=== PATIENT | male | born 1960 | race Caucasian/White ===

== ENCOUNTER → 2017-01-15 | Outpatient (CLI) | payer OTHER | LOC: BMCIMAGING 12:59 | PROVIDERS: ATTEND Physician Assistant | DX: R93.6 Abnormal findings on diagnostic imaging of limbs (principal); Z96.652 Presence of left artificial knee joint ==

== ENCOUNTER → 2017-01-22 | Outpatient (CLI) | payer OTHER | LOC: FIMAGING 08:58 | PROVIDERS: ATTEND Physician Assistant | DX: R93.7 Abnormal findings on diagnostic imaging of other parts of musculoskeletal system (principal); Z96.652 Presence of left artificial knee joint | CPT/HCPCS: 78315; A9503 ==

== ENCOUNTER 2018-01-20 12:10 | Day surgery (SDC) | payer OTHER ==
[2018-01-20] MEDS ORDERED: MIDAZOLAM 2 MG/2 ML VIAL IVP ONE ×2 (12:15→14:28)
[2018-01-20] MEDS ORDERED: ATROPINE SULFATE 1 MG/10 ML SYR IVP ONE (12:15)
[2018-01-20] MEDS ORDERED: fentaNYL 100 MCG/2 ML INJ IVP ONE (12:15)
[2018-01-20] MEDS ORDERED: NS 500 ML IV ONE (12:15)
[2018-01-20] MEDS ORDERED: BENZOCAINE UNIT DOSE SPRAY HURRICAINE MM ONE (12:15)
[2018-01-20] MEDS ORDERED: APIXABAN 5 MG TAB ONE (12:25)
--- NOTE | 2018-01-20 12:35 | CPEKG ---
Heart Rate: 89 RR Interval: 674 QRSD Interval: 102 QT Interval: 380 QTC Interval: 463 QRS [place]: 25 T Wave [place]: -19 EKG Severity - ABNORMAL ECG - EKG Impression: ATRIAL FIBRILLATION-- New since September 23, 2016 EKG Impression: NONSPECIFIC T ABNORMALITIES, INFERIOR LEADS EKG Impression: Right ventricular conduction defect Electronically Signed By: Camden Reis 20-Jan-2018 15:23:00
[2018-01-20] MEDS ORDERED: APIXABAN 5 MG TAB PO ONE (12:45)
[2018-01-20 13:19] LABS: INR 1.1 (0.83-1.16); PROTIME(PATIENT) 14.4 SEC (12.0-15.0)
--- NOTE | 2018-01-20 13:25 | PDHPUP ---
History & Physical Update H&P update statement: This history and physical update is based on an assessment of the patient which was completed after admission or registration (within 24 hours), but prior to the surgery/procedure. H&P update: no change in patient's condition since H&P completed
[2018-01-20] MEDS ORDERED: PROPOFOL 200 MG/20 ML VIAL ONE (13:54)
--- NOTE | 2018-01-20 13:56 | PDANEPAE ---
ANE History of Present Illness a fib ANE Past Medical History - Cardiovascular History Hx Hypertension: Yes Hx Arrhythmias: Yes Hx Chest Pain: No Hx Coronary Artery / Peripheral Vascular Disease: No Hx CHF / Valvular Disease: No Hx Palpitations: No Cardiovascular History Comment: A fib, on Eliquis - Pulmonary History Hx COPD: No Hx Asthma/Reactive Airway Disease: No Hx Recent Upper Respiratory Infection: No Hx Sleep Apnea: Yes Pulmonary History Comment: ALFREDITO w/CPAP- irasema well - Neurologic History Hx Cerebrovascular Accident: No Hx Seizures: No Hx Dementia: No - Endocrine History Hx Diabetes: No Obesity: yes, mild - Renal History Hx Renal Disorders: No - Liver History Hx Hepatic Disorders: No - Neurological & Psychiatric Hx Hx Neurological and Psychiatric Disorders: No - Cancer History Hx Cancer: No - Congenital Disorder History Hx Congenital Disorders: No - GI History Hx Gastrointestinal Disorders: Yes Gastrointestinal History Comment: GERD - on Rx - Other Health History Other Health History: OA R knee - Chronic Pain History Chronic Pain: No - Surgical History Prior Surgeries: L total knee . Bilat knee scopes, L ACL , L ankle - ligament, inguinal hernia, appy '95, ear surgeries as a child, T and A, ANE Review of Systems Review of systems is: negative Review of Systems: - Exercise capacity Exercise capacity: >=4 METS ANE Patient History - Allergies Allergies/Adverse Reactions: hayfever Allergy (Uncoded 07/22/16 08:05) - Home Medications Home medications: home medication list seen and reviewed Home Medications: Apixaban [Eliquis] 5 mg PO BID 05/07/17 [Last Taken 01/20/18 12:45] Lisinopril [Zestril 20 mg (*)] 40 mg PO DAILY 05/07/17 [Last Taken 01/19/18 08: 00] Metoprolol Succinate Xr [Toprol Xl 25 mg (*)] 25 mg PO DAILY 05/07/17 [Last Taken 01/19/18 08:00] Omeprazole 20 mg PO DAILY 05/07/17 [Last Taken 01/19/18 08:00] Propafenone HCl [Rythmol 150mg (*)] 150 mg PO Q8H 05/07/17 [Last Taken 01/20/18 02:00] oxyCODONE IR [Oxycodone Ir (*)] 5 mg PO Q6H PRN 05/07/17 [Last Taken 01/17/18 22 :00] - Smoking Hx Smoking Status: Never smoked - Family Anes Hx Family Hx Anesthesia Complications: none ANE Labs/Vital Signs - Labs Result Diagrams: 01/20/18 12:40 - Vital Signs Height: 198 cm Weight: 127.3 kg ANE Physical Exam - Airway Neck exam: FROM Mallampati Score: Class 1 Mouth exam: normal dental/mouth exam - Pulmonary Pulmonary: no respiratory distress - Cardiovascular Cardiovascular: regular rate and rhythym - ASA Status ASA Status: III ANE Anesthesia Plan Anesthesia Plan: GA with mask
[2018-01-20] MEDS ORDERED: NALOXONE HCL 0.4 MG/ML INJ IVP PRN (14:14)
[2018-01-20] MEDS ORDERED: ACETAMINOPHEN 500 MG TAB PO PRN (14:14)
[2018-01-20] MEDS ORDERED: ONDANSETRON 4 MG/2 ML VIAL IVP PRN (14:14)
[2018-01-20] MEDS ORDERED: ALBUTEROL 3 ML DEYVIAL IH PRN (14:14)
--- NOTE | 2018-01-20 14:14 | POSTANESTH ---
Post Anesthetic Evaluation Cardiovascular Status: Normal, Stable Respiratory Status: Normal, Stable Level of Consciousness/Mental Status: Can Participate in Eval Pain Control: Adequate, Prn Tx Ordered Nausea/Vomiting Control: Adequate, Prn Tx Ordered Complications Possibly Related to Anesthesia: None Noted
--- NOTE | 2018-01-20 14:19 | CPEKG ---
Heart Rate: 64 RR Interval: 938 P-R Interval: 180 QRSD Interval: 100 QT Interval: 404 QTC Interval: 417 P [place]: 29 QRS [place]: -1 T Wave [place]: -14 EKG Severity - BORDERLINE ECG - EKG Impression: SINUS RHYTHM EKG Impression: PROBABLE LEFT ATRIAL ABNORMALITY EKG Impression: BORDERLINE T ABNORMALITIES, INFERIOR LEADS EKG Impression: Resolution of atrial fibrillation since January 20, 2018, 12:34 Electronically Signed By: Camden Reis 20-Jan-2018 15:21:47
--- NOTE | 2018-02-05 11:07 | CPIP ---
[f rep st] INVASIVE CARDIAC PROCEDURE The patient has atrial fibrillation. Patient has been on Eliquis and has not make missed any doses. He gave informed consent for a cardio version. He did not want any further evaluation or other studies done. He converted with 360 watt seconds fro m atrial fibrillation to normal sinus rhythm. Complications were none. He was up and about and doing very well. Followup has been arranged. /[id number]/MODL
== END 2018-01-20 15:14 | disposition home or self-care (01) ==
LOC: FCATH 12:10
PROVIDERS: ATTEND Internal Medicine
PROC: 5A2204Z Restoration of Cardiac Rhythm, Single (ICD-10-PCS; principal; 2018-01-20)
DX: I48.0 Paroxysmal atrial fibrillation (principal); Z79.01 Long term (current) use of anticoagulants
CPT/HCPCS: J0461; J2704

== ENCOUNTER 2018-09-17 09:13 | Inpatient (IN) | payer OTHER ==
--- NOTE | 2018-09-17 06:09 | PDIAF ---
- Diagnosis Diagnosis: right knee djd Code Status: Full Code - Medication Management Discharge Medications: electronically signed and located in the Home Medication List. - Orders Services needed: Home Care, Physical Therapy Home Care Face to Face: I certify that this patient was under my care and that I had the required binn-wz-ejtw encounter meeting the encounter requirements on the discharge day. My findings support the fact that the patient is homebound as defined in Home Care Face to Face Continued: CMS Chapter 7 Medicare Benefits Manual 30.1.1 , The condition of the patient is such that there exists a normal inability to leave home and consequently, leaving home would require a considerable and taxing effort. Diet Recommendation: no restrictions on diet Diet Texture: Regular Texture Diet Additional Instructions: TOTAL JOINT ARTHROPLASTY DISCHARGE INSTRUCTIONS 1. Your surgeon follows the [facility] protocol for reducing your risk of DVT (blood clots) following surgery. Medication will be ordered to prevent blood clots. A sudden increase in calf pain and/or swelling could indicate a blood clot in your leg. If this occurs, please call your surgeon or his/her assistant press operator. An ultrasound of the leg may be necessary to diagnose a blood clot. If you have conditions that make you a higher risk for blood clots, your surgeon may use more aggressive ways to prevent them. Notify your surgeon if you think you are a high risk for blood clots. 2. Wear your white surgical stockings (BALBINA hose) for 2 weeks. This decreases your swelling and may help prevent blood clots. It is ok to remove BALBINA hose at night time to give your legs a break. 3. Swelling and bruising in the surgical leg is common. If you feel that it is excessive, please notify your surgeon. 4. Elevate your surgical leg with the ankle above the hip several times every day. Please keep the leg straight when you elevate by putting pillows under your foot. Do not put pillows under your knee. This will make being able to fully straighten more difficult. This is uncomfortable, but try to do it as much as possible. 5. For total knee replacements use compressive wrap on your knee for 3-5 days after surgery, then you can discontinue it. 6. Use a walker or crutches for 1-2 weeks. Progress your weight-bearing as tolerated. You may start to use a cane when you feel stable and safe. 7. You will receive physical therapy instructions in the hospital. Continue those exercises at home. There are additional exercises in the total joint booklet you were given before surgery. Outpatient physical therapy will begin 7- 10 days after surgery. Please schedule this in advance. 8. Use ice on your knee at least 3-5 times every day for 30 minutes. This helps reduce pain and swelling. Also use it at night before falling asleep. 9. Leave your surgical dressing in place for 2 weeks. Your dressing is water resistant, but not waterproof. Cover it with Saran Wrap or Adfsl-a-Noot before showering. You may shower as soon as you feel safe entering a shower. If you notice bleeding from your incision 2 or 3 days after surgery, please notify your surgeon. 10. Due to narcotics, decreased activity and altered diet, most patients experience constipation after surgery. Use abte-hom-vyczmnx stool softeners while you are on narcotics. 11. You may drive a car when you are comfortable bearing weight, have good muscular control of your leg and are off narcotics. This usually occurs 2-4 weeks after surgery, depending on which leg was operated on. 12. If there are questions not addressed here, please refer the [facility] book given for more information. If you still have questions, please contact your surgeon s office. 13. If you have a life-threatening emergency, please call 911 and go to the emergency room immediately. For non-life threatening emergencies, please call your physicians office for advice before going to the emergency room. - Follow Up Care Current Providers and Referrals: Rigo Murray MD [Medical Doctor] - Garett Lau MD [Primary Care Provider] -
[~2018-09-17 09:13] MED LIST: ROPIVACAINE 0.2% 80 MG, EPINEPHrine 0.2 MG, KETOROLAC TROMETHAMINE 30 MG, morphINE 10 M... IU ONE; TRANEXAMIC ACID 1,000 MG in NS 100 ML IV ONE; TRANEXAMIC ACID 2,000 MG in NS 100 ML IV ONE; ceFAZolin 1 GM/5 ML SYR ONE
[2018-09-17] MEDS ORDERED: ceFAZolin 2 GM/DEXTROSE 100 ML IV ONE (09:39)
[2018-09-17] MEDS ORDERED: ACETAMINOPHEN 325 MG TAB PO ONE (09:39)
[2018-09-17] MEDS ORDERED: FAMOTIDINE 20 MG TAB PO ONE (09:39)
[2018-09-17] MEDS ORDERED: LR 1,000 ML IV ONE (09:40)
[2018-09-17] MEDS ORDERED: LIDOCAINE 1% 2 ML INJ ID PRN (09:40)
--- NOTE | 2018-09-17 10:10 | PDANEPAE ---
ANE Past Medical History - Cardiovascular History Hx Hypertension: Yes Hx Arrhythmias: Yes Hx Chest Pain: No Hx Coronary Artery / Peripheral Vascular Disease: No Hx CHF / Valvular Disease: No Hx Palpitations: No Cardiovascular History Comment: A fib, on Eliquis - Pulmonary History Hx COPD: No Hx Asthma/Reactive Airway Disease: No Hx Recent Upper Respiratory Infection: No Hx Sleep Apnea: No Sleep Apnea Screening Result - Last Documented: Positive Pulmonary History Comment: ALFREDITO w/CPAP- irasema well - Neurologic History Hx Cerebrovascular Accident: No Hx Seizures: No Hx Dementia: No - Endocrine History Hx Diabetes: No - Renal History Hx Renal Disorders: No - Liver History Hx Hepatic Disorders: No - Neurological & Psychiatric Hx Hx Neurological and Psychiatric Disorders: No - Cancer History Hx Cancer: No - Congenital Disorder History Hx Congenital Disorders: No - GI History Hx Gastrointestinal Disorders: Yes Gastrointestinal History Comment: GERD - on Rx - Other Health History Other Health History: OA R knee - Chronic Pain History Chronic Pain: No - Surgical History Prior Surgeries: L total knee . Bilat knee scopes, L ACL , L ankle - ligament, inguinal hernia, appy '95, ear surgeries as a child, T and A, ANE Review of Systems Review of Systems: - Exercise capacity METS (RN): 4 METS ANE Patient History - Allergies Allergies/Adverse Reactions: hayfever Allergy (Uncoded 07/22/16 08:05) - Home Medications Home Medications: Apixaban [Eliquis] 5 mg PO BID 05/07/17 [Last Taken 09/15/18] Lisinopril [Zestril 20 mg (*)] 40 mg PO DAILY 05/07/17 [Last Taken 09/16/18] Metoprolol Succinate Xr [Toprol Xl 25 mg (*)] 25 mg PO DAILY 05/07/17 [Last Taken 09/17/18] Omeprazole 20 mg PO DAILY 05/07/17 [Last Taken 09/17/18] Propafenone HCl [Rythmol 150mg (*)] 150 mg PO Q8H 05/07/17 [Last Taken 09/16/18] - NPO status NPO Since - Liquids (Date): 09/17/18 NPO Since - Liquids (Time): 07:00 NPO Since - Solids (Date): 09/16/18 NPO Since - Solids (Time): 21:30 - Smoking Hx Smoking Status: Never smoked - Family Anes Hx Family Hx Anesthesia Complications: none ANE Labs/Vital Signs - Vital Signs Blood Pressure: 150/115 Heart Rate: 59 Respiratory Rate: 22 O2 Sat (%): 94 Height: 198.12 cm Weight: 124.738 kg ANE Physical Exam - Airway Neck exam: decreased ROM, increased neck circumference, short neck Mallampati Score: Class 3 Mouth exam: normal dental/mouth exam - Pulmonary Pulmonary: no respiratory distress - Cardiovascular Cardiovascular: regular rate and rhythym - ASA Status ASA Status: III ANE Anesthesia Plan Anesthesia Plan: general endotracheal anesthesia
[2018-09-17] MEDS ORDERED: DEXAMETHASONE 4 MG/ML VIAL ONE ×2 (10:36→10:37)
[2018-09-17] MEDS ORDERED: PROPOFOL 200 MG/20 ML VIAL ONE (10:36)
[2018-09-17] MEDS ORDERED: ROCURONIUM 100 MG/10 ML VIAL ONE (10:36)
[2018-09-17] MEDS ORDERED: METOCLOPRAMIDE 10 MG/2 ML VIAL ONE (10:37)
[2018-09-17] MEDS ORDERED: KETOROLAC 30 MG/1 ML SDV ONE (10:37)
[2018-09-17] MEDS ORDERED: LIDOCAINE 2% 100 MG/5 ML SYR ONE (10:37)
[2018-09-17] MEDS ORDERED: CALCIUM CHLORIDE 1 GM/10 ML INJ ONE (10:56)
[2018-09-17] MEDS ORDERED: THROMBIN (BOVINE) 5,000 UNIT VIAL TP ONE (10:56)
[2018-09-17] MEDS ORDERED: SUGAMMADEX SODIUM 200 MG/2 ML VIAL IVP ONE (12:39)
[2018-09-17] MEDS ORDERED: ONDANSETRON 4 MG/2 ML VIAL IVP PRN ×2 (13:01→13:20)
[2018-09-17] MEDS ORDERED: CYCLOBENZAPRINE 10 MG TAB PO PRN (13:01)
[2018-09-17] MEDS ORDERED: BISACODYL 10 MG SUPP PR PRN (13:01)
[2018-09-17] MEDS ORDERED: oxyCODONE IR 5 MG TAB PO PRN (13:01)
[2018-09-17] MEDS ORDERED: LACTULOSE 20 GM/30 ML UDCUP PO PRN (13:01)
[2018-09-17] MEDS ORDERED: ONDANSETRON DISINTEGRATING 4 MG TAB PO PRN (13:01)
[2018-09-17] MEDS ORDERED: PROMETHAZINE HCL 25 MG/ML INJ IVP PRN (13:01)
[2018-09-17] MEDS ORDERED: DIPHENOXYLATE/ATROPINE LOMOTIL 1 TAB PO PRN (13:01)
[2018-09-17] MEDS ORDERED: PROMETHAZINE HCL 25 MG SUPPR PR PRN (13:01)
[2018-09-17] MEDS ORDERED: TEMAZEPAM 15 MG CAP PO PRN (13:01)
[2018-09-17] MEDS ORDERED: diphenhydrAMINE 25 MG CAP PO PRN (13:01)
[2018-09-17] MEDS ORDERED: METOCLOPRAMIDE 10 MG/2 ML VIAL IVP PRN (13:01)
[2018-09-17] MEDS ORDERED: POLYETHYLENE GLYCOL 3350 17 GM PKT PO PRN (13:01)
[2018-09-17] MEDS ORDERED: MAGNESIUM HYDROXIDE 30 ML UDCUP PO PRN (13:01)
--- NOTE | 2018-09-17 13:04 | POSTOPPROG ---
Post Op Note Date of Operation: 09/17/18 Surgeon: Rigo Murray [employer]: galilea Anesthesiologist: kathia Anesthesia: GET(General Endotracheal) Pre-op Diagnosis: right knee djd Post-op Diagnosis: joshua Indication: same Procedure: right tka Inf/Abcess present in the surg proc area at time of surgery?: No Depth: Deep Incisional (Fascial) EBL: 100-500
[2018-09-17] MEDS ORDERED: ALBUTEROL 3 ML DEYVIAL IH PRN (13:20)
[2018-09-17] MEDS ORDERED: fentaNYL 100 MCG/2 ML INJ IVP PRN (13:20)
[2018-09-17] MEDS ORDERED: NALOXONE HCL 0.4 MG/ML INJ IVP PRN ×2 (13:20)
--- NOTE | 2018-09-17 13:22 | POSTANESTH ---
Post Anesthetic Evaluation Cardiovascular Status: Similar to Pre-Op Cond Respiratory Status: Similar to Pre-op Cond. Level of Consciousness/Mental Status: Mildly Sleepy, Arousable Pain Control: Adequate, Prn Tx Ordered Nausea/Vomiting Control: Adequate, Prn Tx Ordered Complications Possibly Related to Anesthesia: None Noted
[2018-09-17] MEDS ORDERED: LR 1,000 ML IV SCH (13:30)
[2018-09-17] MEDS ORDERED: TRANEXAMIC ACID 650 MG TAB PO SCH (14:00)
[2018-09-17] MEDS ORDERED: ONDANSETRON 4 MG/2 ML VIAL ONE (14:05)
[2018-09-17] MEDS: PROPAFENONE HCL 150 MG TAB PO SCH ×2 (16:07→23:32)
--- NOTE | 2018-09-17 16:13 | PDMN ---
Medical Necessity Medical necessity: [facility] [place] S700 knee arthroplasty OP: R TKA AUTH # [id number] FOR CPT 74410. VALID FOR 1 DOS DONE IN PT
[2018-09-17] MEDS: ACETAMINOPHEN 325 MG TAB PO SCH ×2 (18:35→23:32)
[2018-09-17] MEDS: TRANEXAMIC ACID 650 MG TAB PO SCH (18:35)
[2018-09-17] MEDS: SENNOSIDES/DOCUSATE SODIUM TAB PO SCH (20:37)
[2018-09-17] MEDS: FAMOTIDINE 20 MG TAB PO SCH (20:37)
[2018-09-17] MEDS: ceFAZolin 2 GM/DEXTROSE 100 ML IV SCH (20:38)
[2018-09-18] MEDS: TRANEXAMIC ACID 650 MG TAB PO SCH (02:11)
[2018-09-18] MEDS: ceFAZolin 2 GM/DEXTROSE 100 ML IV SCH (04:31)
[2018-09-18] MEDS: ACETAMINOPHEN 325 MG TAB PO SCH (05:47)
--- NOTE | 2018-09-18 07:19 | PDIAF ---
- Diagnosis Diagnosis: right knee djd Code Status: Full Code - Medication Management Discharge Medications: electronically signed and located in the Home Medication List. - Orders Services needed: Home Care, Physical Therapy Home Care Face to Face: I certify that this patient was under my care and that I had the required tsdx-to-fbox encounter meeting the encounter requirements on the discharge day. My findings support the fact that the patient is homebound as defined in Home Care Face to Face Continued: CMS Chapter 7 Medicare Benefits Manual 30.1.1 , The condition of the patient is such that there exists a normal inability to leave home and consequently, leaving home would require a considerable and taxing effort. Diet Recommendation: no restrictions on diet Diet Texture: Regular Texture Diet Additional Instructions: TOTAL JOINT ARTHROPLASTY DISCHARGE INSTRUCTIONS 1. Your surgeon follows the [facility] protocol for reducing your risk of DVT (blood clots) following surgery. Medication will be ordered to prevent blood clots. A sudden increase in calf pain and/or swelling could indicate a blood clot in your leg. If this occurs, please call your surgeon or his/her assistant men's soccer coach. An ultrasound of the leg may be necessary to diagnose a blood clot. If you have conditions that make you a higher risk for blood clots, your surgeon may use more aggressive ways to prevent them. Notify your surgeon if you think you are a high risk for blood clots. 2. Wear your white surgical stockings (BALBINA hose) for 2 weeks. This decreases your swelling and may help prevent blood clots. It is ok to remove BALBINA hose at night time to give your legs a break. 3. Swelling and bruising in the surgical leg is common. If you feel that it is excessive, please notify your surgeon. 4. Elevate your surgical leg with the ankle above the hip several times every day. Please keep the leg straight when you elevate by putting pillows under your foot. Do not put pillows under your knee. This will make being able to fully straighten more difficult. This is uncomfortable, but try to do it as much as possible. 5. For total knee replacements use compressive wrap on your knee for 3-5 days after surgery, then you can discontinue it. 6. Use a walker or crutches for 1-2 weeks. Progress your weight-bearing as tolerated. You may start to use a cane when you feel stable and safe. 7. You will receive physical therapy instructions in the hospital. Continue those exercises at home. There are additional exercises in the total joint booklet you were given before surgery. Outpatient physical therapy will begin 7- 10 days after surgery. Please schedule this in advance. 8. Use ice on your knee at least 3-5 times every day for 30 minutes. This helps reduce pain and swelling. Also use it at night before falling asleep. 9. Leave your surgical dressing in place for 2 weeks. Your dressing is water resistant, but not waterproof. Cover it with Saran Wrap or Swgaf-k-Iere before showering. You may shower as soon as you feel safe entering a shower. If you notice bleeding from your incision 2 or 3 days after surgery, please notify your surgeon. 10. Due to narcotics, decreased activity and altered diet, most patients experience constipation after surgery. Use dquu-rfa-utuyela stool softeners while you are on narcotics. 11. You may drive a car when you are comfortable bearing weight, have good muscular control of your leg and are off narcotics. This usually occurs 2-4 weeks after surgery, depending on which leg was operated on. 12. If there are questions not addressed here, please refer the [facility] book given for more information. If you still have questions, please contact your surgeon s office. 13. If you have a life-threatening emergency, please call 911 and go to the emergency room immediately. For non-life threatening emergencies, please call your physicians office for advice before going to the emergency room. - Follow Up Care Current Providers and Referrals: Rigo Murray MD [Medical Doctor] - Garett Lau MD [Primary Care Provider] -
--- NOTE | 2018-09-18 07:21 | SOAPPROG ---
SOAP Progress Note Assessment/Plan: Assessment: s/p right tka Plan:dvt precautions, mobilize with pt.ot f/u at two weeks seek attn for increasing pain or other focal complaint 09/18/18 07:19 Subjective: mild pain no cp or sob Objective: Vital Signs Temp Pulse Resp BP Pulse Ox 36.8 C 60 14 150/89 H 96 09/18/18 04:00 09/18/18 04:00 09/18/18 04:00 09/18/18 04:00 09/18/18 04:00 Laboratory Results 09/18/18 05:09 09/17/18 09/18/18 09/19/18 05:59 05:59 05:59 Intake Total 3405 Output Total 1000 Balance 2405 dressing intact intact pf,df,ehl toes warm pink neg homans debbie xrays stable anatomic alignement,, no fx or lucency ICD10 Worksheet Patient Problems: Problems Problem Status Onset Arthritis of knee Acute - ICD10 Problem Qualifiers (1) Arthritis of knee
[2018-09-18] MEDS: SENNOSIDES/DOCUSATE SODIUM TAB PO SCH (07:56)
[2018-09-18] MEDS: FAMOTIDINE 20 MG TAB PO SCH (07:57)
[2018-09-18] MEDS: PROPAFENONE HCL 150 MG TAB PO SCH (07:58)
[2018-09-18] MEDS ORDERED: PANTOPRAZOLE SODIUM 40 MG TAB PO SCH (09:00)
[2018-09-18] MEDS ORDERED: LISINOPRIL 20 MG TAB PO SCH (09:00)
[2018-09-18] MEDS ORDERED: METOPROLOL SUCCINATE XR 25 MG TAB PO SCH (09:00)
[2018-09-18] MEDS ORDERED: APIXABAN 5 MG TAB PO SCH (09:00)
[2018-09-18 09:36] VITALS: BP 169/103
--- NOTE | 2018-09-18 14:31 | ASMTCMCOM ---
CM Note CM Note Notes: Pt medically stable for d/c with [facility], orders to be obtained via [employer]. Pt address/phone verified. Date Signed: 09/18/2018 02:30 PM Electronically Signed By:JOSÉ Koo
--- NOTE | 2018-09-18 14:31 | ASDISCHSUM ---
Discharge Information Plan Status:Home with Home Health Medically Cleared to Leave: Discharge Date:09/18/2018 12:11 PM CM D/C Disposition: ADT D/C Disposition:Home Health Service Projected Discharge Date:09/18/2018 11:00 AM Transportation at D/C: Discharge Delay Reason: Follow-Up Date:09/18/2018 11:00 AM Discharge Slot: Final Diagnosis: Placement Information Referral Type:*Home Health Care Services Referral ID:[id number] Provider Name:[facility] Address 1:[address] Address 2: City:[place] Selection Factors: State:[place] Patient Contact Information Contact Name:TOMÁS Relationship: Address:[address] City:[place] Phone: State/Zip Code:[place] [address] Email: Financial Information Financial Class:BCOP Primary Plan Desc:[facility]WAY PLAN Primary Plan Number:[id number] Secondary Plan Desc: Secondary Plan Number: Assessment Information LACE LACE Length of stay for Answers: 2 days current admission Acuity / Level of Answers: Yes Care: Did the patient have an inpatient admission? Comorbidities - select Answers: Other Notes: HTN; AFib; GERD all that apply # of Emergency department Answers: 0 visits in the last 6 months Score: 6 Date Signed: 09/18/2018 02:29 PM Electronically Signed By:JOSÉ Koo [facility] CM Progress Note CM Note CM Note Notes: Pt medically stable for d/c with [facility], orders to be obtained via [employer]. Pt address/phone verified. Date Signed: 09/18/2018 02:30 PM Electronically Signed By:JOSÉ Koo Intervention Information
--- NOTE | 2018-09-24 08:44 | GOP ---
DATE OF OPERATION: 09/17/2018 SURGEON: Rigo Murray MD MOUTHPIECE MAKER: Edwin Veloz, MAIL ORDER CLERK, MANNEQUIN WIG MAKER, surgical elastic knitter hand frame who was medical necessity for the entirety of the case. PREOPERATIVE DIAGNOSIS: Right knee degenerative joint disease. POSTOPERATIVE DIAGNOSIS: Right knee degenerative joint disease. PROCEDURE PERFORMED: Right total knee arthroplasty. FINDINGS: SPECIMENS: To Pathology, none. DESCRIPTION OF PROCEDURE: The patient was identified in the preanesthesia area. The right knee steven rly demarcated as the operative site with indelible marker. He was given 2 g of Ancef intravenously in route to the operative suite. In the OR, spinal anesthetic was placed. He was positioned in a kim pine position. Attention was turned to the right knee, which was sterilely prepped and draped in usu al fashion. Appropriate time-out procedure was carried out. The limb was exsanguinated with an Suzy rch bandage. Tourniquet inflated to 275 mmHg. Standard anterior midline incision was made. Thick subcutaneous flaps were elevated, followed by med ial parapatellar arthrotomy. Subperiosteal elevation was carried out to the mid coronal plane and re tractors were placed. The knee demonstrated tricompartmental arthritis. Decision was made to procee d. Two pins were then placed from medial to lateral across the femur. The femoral reference array affix ed and femoral check point placed. A separate percutaneous incision was made over the mid tibia. Tw o pins were then placed in this area, followed by tibial reference array, and a tibial check point wa s placed. The bony landmarks were entered in the computer in standard fashion. The marginal osteoph ytes were removed. Soft tissue releases were carried out to facilitate balancing of the knee through the flexion-extension arc. Using the MAKOplasty software, the resections were made for both the femoral and tibial components. Trial reduction was carried out over serial polyethylene spacers until the appropriate space was plac ed. The knee was brought to full extension, flexion to 120 degrees. There was no instability throug h the flexion-extension arc. The trial components were withdrawn. In sequential fashion, the tibial , femoral components were press-fit into position and the polyethylene spacer placed and confirmed to be fully seated. This again restored full extension, flexion to 120 degrees, and no instability to varus or valgus stress through the flexion-extension arc. The patella was then everted, cut in a edna ehand cutting technique. A press-fit patella component was then placed. The knee cap tracked centra lly through the flexion-extension arc. The wound was copiously irrigated. The joint injected with a joint cocktail of ropivacaine, morphine , Toradol, and epinephrine. The medial parapatellar arthrotomy closed using #1 Ethibond suture. The tissue injected with a platelet-rich plasma. Subcutaneous tissue closed using 2-0 Monocryl, and the skin stapled. Sterile dressing was applied. The patient was awakened, extubated, and taken to carmella very room in good and stable condition. OPERATIVE INDICATIONS: The patient is a 58-year-old gentleman who has progressive end-stage arthriti s to his right knee. He has failed all attempts at conservative management. I have, therefore, carmella mmended operative intervention. I have outlined the surgical procedure, risks, benefits, and alterna tives at length. He wished to proceed. Appropriate consent was signed and placed in patient's chart . TOTAL TOURNIQUET TIME: 55 minutes. COMPLICATIONS: None. IMPLANTS: As above. DISPOSITION: To the recovery room, then the floor. He is weightbearing, range of motion as tolerate d. /[id number]/MODL
--- NOTE | 2018-09-24 12:45 | GDS ---
ADMIT DIAGNOSIS: Right knee degenerative joint disease. DISCHARGE DIAGNOSIS: Right knee degenerative joint disease. PROCEDURE: Right total knee arthroplasty. OPERATIVE INDICATIONS: The patient is a 58-year-old gentleman who presents for elective total knee r eplacement. He has end-stage arthritis to his right knee. HOSPITAL COURSE: The patient was admitted to the hospital floor after uncomplicated total knee arthr oplasty. He tolerated the procedure well. At the time of discharge, he has been cleared by Physical Therapy. Dressing is clean, dry, and intact. He has negative Homans. X-rays are stable, with ernesto omic alignment. DISCHARGE MEDICATIONS: Oxycodone 5 mg 1-2 every 6 hours p.r.n. pain, Eliquis on a daily dosing. FOLLOWUP: Follow up in 2 weeks. Seek attention for increasing redness, swelling, drainage, discharg e, or other focal complaints. /[id number]/MODL
== END 2018-09-18 12:11 | disposition home health service (06) | DRG 470 ==
LOC: F3N 09:13
PROVIDERS: ADMIT Orthopaedic Surgery; ATTEND Orthopaedic Surgery
DX: M17.11 Unilateral primary osteoarthritis, right knee (principal); I10 Essential (primary) hypertension; I48.91 Unspecified atrial fibrillation; Z79.01 Long term (current) use of anticoagulants; G47.33 Obstructive sleep apnea (adult) (pediatric)
CPT/HCPCS: 97161-GP; 97165-GO; J0171; J0690; J1100; J1885; J2001; J2270; J2405; J2704; J2765; J2795

== ENCOUNTER → 2018-11-04 | Outpatient (CLI) | payer OTHER | LOC: BMCIMAGING 09:11 | PROVIDERS: ATTEND Orthopaedic Surgery | DX: Z47.1 Aftercare following joint replacement surgery (principal); Z96.651 Presence of right artificial knee joint ==

== ENCOUNTER → 2018-12-15 | Outpatient (CLI) | payer OTHER | LOC: BMCIMAGING 17:00 | PROVIDERS: ATTEND Podiatrist Foot & Ankle Surgery | DX: M25.571 Pain in right ankle and joints of right foot (principal); M79.89 Other specified soft tissue disorders; M24.271 Disorder of ligament, right ankle ==

== ENCOUNTER → 2018-12-16 | Outpatient (CLI) | payer OTHER | LOC: BMCIMAGING 09:30 | PROVIDERS: ATTEND Orthopaedic Surgery | DX: Z47.1 Aftercare following joint replacement surgery (principal); Z96.651 Presence of right artificial knee joint ==